=== PATIENT | male | born 1980 | race Two or more races ===

== ENCOUNTER 2019-11-28 00:14 | Emergency (ER) | payer MEDICAID ==
[~2019-11-28] VITALS: Ht 180.3 cm; Wt 103.0 kg
[2019-11-28 00:23] VITALS: BP 135/83
[2019-11-28] MEDS ORDERED: OXYcodone/APAP 5/325MG TABLET PO ONE (01:00)
[2019-11-28] MEDS ORDERED: SODIUM CHLORIDE FLUSH 10ML SYR IVF ONE (01:00)
[2019-11-28] MEDS ORDERED: OXYcodone/APAP 5/325MG TABLET ONE (01:13)
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
[2019-11-28 01:56] LABS: BASOPHILS % (AUTO) 1 % (0-1); EOSINOPHILS % (AUTO) 7 % (1-7); LYMPHOCYTES % (AUTO) 25 % (22-44); MEAN CORPUSCULAR HEMOGLOBIN 29.1 pg (27.5-34.5); MEAN CORPUSCULAR HGB CONC 32.7 g/dL (33.2-36.2); MEAN PLATELET VOLUME 8.5 fL (7.4-10.4); MONOCYTES % (AUTO) 7 % (2-9); NEUTROPHILS % (AUTO) 61 % (42-75); PLATELET COUNT 340 x10^3/uL (130-400); RED CELL DISTRIBUTION WIDTH 13.2 % (9.4-14.8)
[2019-11-28 01:59] LABS: MD NO
[2019-11-28 02:05] LABS: ALBUMIN 3.5 g/dL (3.4-5.0); ANION GAP 4 mmol/L (5-15); CALCIUM 8.6 mg/dL (8.5-10.1); CHLORIDE 109 mmol/L (98-107); CREATININE 1.05 mg/dL (0.7-1.3)
[2019-11-28] MEDS ORDERED: OMNIPAQUE 350 MG/ML, 100ML BOTTLE ONE (02:57)
--- NOTE | 2019-11-28 03:55 | NUR ---
PA at bedside
[2019-11-28] MEDS ORDERED: CYCLOBENZAPRINE 10 MG TABLET PO ONE (04:00)
[2019-11-28] MEDS ORDERED: CYCLOBENZAPRINE 10 MG TABLET ONE (04:10)
== END 2019-11-28 04:31 ==
LOC: ED 03:49
DX: S29.012A Strain of muscle and tendon of back wall of thorax, initial encounter (principal); S40.022A Contusion of left upper arm, initial encounter; M79.89 Other specified soft tissue disorders; R00.0 Tachycardia, unspecified; R06.02 Shortness of breath; V89.2XXA Person injured in unspecified motor-vehicle accident, traffic, initial encounter; Y93.89 Activity, other specified; Y92.89 Other specified places as the place of occurrence of the external cause; Y99.8 Other external cause status
CPT/HCPCS: 36415; 71101; 71275; 73201; 80048; 82040; 85025; 93005; 93971; 99285; Q9967

== ENCOUNTER 2020-01-11 02:54 | Emergency (ER) | payer MEDICAID ==
[~2020-01-11] VITALS: Ht 180.3 cm; Wt 99.0 kg
[2020-01-11 02:56] VITALS: BP 169/101
[2020-01-11] MEDS ORDERED: MORPHINE SULFATE 4 MG/ML, 1ML IVPush PRN (03:30)
[2020-01-11] MEDS ORDERED: ONDANSETRON 2MG/ML, 2ML IVPush ONE (03:30)
[2020-01-11] MEDS ORDERED: MORPHINE SULFATE 4 MG/ML, 1ML ONE (03:30)
[2020-01-11] MEDS ORDERED: ONDANSETRON 2MG/ML, 2ML ONE (03:30)
[2020-01-11] MEDS ORDERED: SODIUM CHLORIDE FLUSH 10ML SYR IVF ONE (03:30)
--- NOTE | 2020-01-11 03:30 | NUR ---
PIV STARTED, LAB AT BEDSIDE FOR 2ND SET OF CULTURES, ALL LABS DRAWN AND SENT AT THIS TIME.
--- NOTE | 2020-01-11 03:39 | NUR ---
PT MEDICATED PER [facility] FOR PAIN/ NAUSEA
[2020-01-11 03:47] LABS: BASOPHILS % (AUTO) 1 % (0-1); EOSINOPHILS % (AUTO) 4 % (1-7); LYMPHOCYTES % (AUTO) 13 % (22-44); MEAN CORPUSCULAR HEMOGLOBIN 29.6 pg (27.5-34.5); MEAN CORPUSCULAR HGB CONC 33.9 g/dL (33.2-36.2); MEAN PLATELET VOLUME 7.5 fL (7.4-10.4); MONOCYTES % (AUTO) 7 % (2-9); NEUTROPHILS % (AUTO) 76 % (42-75); PLATELET COUNT 471 x10^3/uL (130-400); RED BLOOD COUNT 4.11 x10^6/uL (4.38-5.82); RED CELL DISTRIBUTION WIDTH 13.2 % (9.4-14.8)
--- NOTE | 2020-01-11 03:47 | NUR ---
RECORDS REQUEST SIGNED AND SENT TO [facility]
[2020-01-11 03:48] LABS: MD NO
[2020-01-11 03:55] LABS: ALBUMIN 3.2 g/dL (3.4-5.0); ANION GAP 6 mmol/L (5-15); CHLORIDE 106 mmol/L (98-107)
[2020-01-11 03:58] LABS: ALANINE AMINOTRANSFERASE 185 U/L (12-78); ALKALINE PHOSPHATASE 217 U/L (45-117); BILIRUBIN,TOTAL 0.5 mg/dL (0.2-1.0); CREATININE 0.96 mg/dL (0.7-1.3)
--- NOTE | 2020-01-11 04:02 | NUR ---
PT BACK FROM CT AT THIS TIME
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
[2020-01-11] MEDS ORDERED: CLINDAMYCIN 150 MG/ML, 6ML ONE (04:55)
[2020-01-11] MEDS ORDERED: CLINDAMYCIN 150 MG/ML, 6ML IM ONE (05:00)
--- NOTE | 2020-01-11 05:17 | NUR ---
Patient/Caregiver given discharge instructions and they have confirmed that they understand the instructions. Patient ambulatory with steady gait. PIV DC PRIOR TO PT LEAVING ER
[2020-01-11] MEDS ORDERED: OMNIPAQUE 350 MG/ML, 100ML BOTTLE ONE (05:56)
== END 2020-01-11 05:18 | disposition home or self-care (01) ==
LOC: ED 03:59
DX: L03.311 Cellulitis of abdominal wall (principal); N18.9 Chronic kidney disease, unspecified
CPT/HCPCS: 36415; 74177; 80053; 85025; 87040; 96372; 96374; 96375; 99285; J2270; J2405; Q9967; S0077